=== PATIENT | female | born 1950 | race Caucasian/White ===

== ENCOUNTER 2022-06-07 15:55 | Observation (INO) ==
[2022-06-07] MEDS ORDERED: Ondansetron 4 MG/2 ML VIAL IVP ONE (16:39)
[2022-06-07] MEDS ORDERED: 0.9 % Sodium Chloride 500 ML IVC ONE (16:39)
[2022-06-07] MEDS: 0.9 % Sodium Chloride 1,000 ML IVC SCH (17:11)
[2022-06-07] MEDS ORDERED: Naloxone 0.4 MG/ML INJ IVP PRN (18:11)
[2022-06-07] MEDS ORDERED: Ipratropium/Albuterol Neb 3 ML IH PRN ×2 (18:13→18:45)
[2022-06-07] MEDS ORDERED: Ondansetron ODT 4 MG TAB.RAPDIS SL PRN (18:13)
[2022-06-07] MEDS ORDERED: *HR* OxyCODONE/APAP 5/325 TABLET PO ONE (22:16)
[2022-06-07] MEDS: Topiramate 25 MG TABLET PO SCH (22:33)
[2022-06-08] MEDS: *HR* Enoxaparin 40 MG/0.4 ML SYRINGE SQ SCH (07:12)
[2022-06-08 07:33] LABS: Albumin 2.8 g/dL (3.5-5.7); Bilirubin,Total 0.4 mg/dL (0.3-1.0); Calcium 8.2 mg/dL (8.6-10.3); Globulin 2.7 g/dL (2.4-3.5); Magnesium 1.6 mg/dL (1.6-2.6); Potassium 3.7 mEq/L (3.5-5.1); Total Protein 5.5 g/dL (6.4-8.9)
[2022-06-08] MEDS: Metoprolol XL (24 HR) Succ 25 MG TAB.ER.24H PO SCH (09:28)
[2022-06-08] MEDS: calcitrioL 0.25 MCG CAPSULE PO SCH (09:28)
[2022-06-08] MEDS: Multivit/Ca/Min/Fe/FA 1 TAB TABLET PO SCH (09:29)
[2022-06-08] MEDS: amLODIPine 5 MG TABLET PO SCH (09:29)
[2022-06-08] MEDS: Topiramate 25 MG TABLET PO SCH ×2 (09:30→22:58)
[2022-06-08] MEDS ORDERED: Melatonin 3 MG TABLET PO PRN (23:34)
[2022-06-08] MEDS ORDERED: *HR* OxyCODONE/APAP 5/325 TABLET PO ONE (23:34)
[2022-06-09] MEDS: *HR* Enoxaparin 40 MG/0.4 ML SYRINGE SQ SCH (06:40)
[2022-06-09] MEDS ORDERED: Simethicone 80 MG TAB.CHEW PO PRN (08:11)
[2022-06-09] MEDS: Multivit/Ca/Min/Fe/FA 1 TAB TABLET PO SCH (10:58)
[2022-06-09] MEDS: amLODIPine 5 MG TABLET PO SCH (10:58)
[2022-06-09] MEDS: Topiramate 25 MG TABLET PO SCH ×2 (10:58→23:36)
[2022-06-09] MEDS: calcitrioL 0.25 MCG CAPSULE PO SCH (10:58)
[2022-06-09] MEDS: Metoprolol XL (24 HR) Succ 25 MG TAB.ER.24H PO SCH (10:59)
[2022-06-09] MEDS: Acetaminophen 325 MG TABLET PO PRN (23:34)
[2022-06-09] MEDS: Melatonin 3 MG TABLET PO PRN (23:35)
[2022-06-10] MEDS: *HR* Enoxaparin 40 MG/0.4 ML SYRINGE SQ SCH (06:03)
[2022-06-10] MEDS: amLODIPine 5 MG TABLET PO SCH (08:48)
[2022-06-10] MEDS: Topiramate 25 MG TABLET PO SCH ×2 (08:49→22:12)
[2022-06-10] MEDS: Metoprolol XL (24 HR) Succ 25 MG TAB.ER.24H PO SCH (08:49)
[2022-06-10] MEDS: Multivit/Ca/Min/Fe/FA 1 TAB TABLET PO SCH (08:49)
[2022-06-10] MEDS: calcitrioL 0.25 MCG CAPSULE PO SCH (08:49)
[2022-06-10] MEDS ORDERED: Iopamidol - 370 500 ML MLS IVP ONE (11:14)
[2022-06-10 11:45] LABS: Basophils % 0.3 %; Eosinophils # 0.2 K/mcL (0.0-0.6); Eosinophils % 2.2 %; Hematocrit 34.5 % (35.3-44.9); Immature Granulocytes % 1.6 % (0-4); Lymphocytes # 1.4 K/mcL (0.6-4.6); Lymphocytes % 15.2 %; Mean Corpuscular HGB Conc 31.9 g/dL (31.6-35.5); Mean Corpuscular Hemoglobin 30.4 pg (28.0-33.3); Mean Corpuscular Volume 95.3 fL (83.0-100.0); Mean Platelet Volume 10.5 fL (9.4-12.4); Monocytes # 0.7 K/mcL (0.0-1.3); Monocytes % 7.4 %; Neutrophils # 6.6 K/mcL (1.6-8.9); Platelet Count 171 K/mcL (140-400); Red Blood Count 3.62 M/mcL (3.82-4.97); Red Cell Distribution Width 14.7 % (11.5-14.5); Segmented Neutrophils % 73.3 %
[2022-06-10 12:03] LABS: Calcium 9.3 mg/dL (8.6-10.3); Potassium 4.8 mEq/L (3.5-5.1)
[2022-06-10] MEDS: 0.9 % Sodium Chloride 1,000 ML IVC SCH (16:04)
[2022-06-10] MEDS: Acetaminophen 325 MG TABLET PO PRN (22:12)
[2022-06-11] MEDS: Melatonin 3 MG TABLET PO PRN (00:03)
[2022-06-11] MEDS: *HR* Enoxaparin 40 MG/0.4 ML SYRINGE SQ SCH (05:52)
[2022-06-11] MEDS: amLODIPine 5 MG TABLET PO SCH (09:02)
[2022-06-11] MEDS: Topiramate 25 MG TABLET PO SCH (09:02)
[2022-06-11] MEDS: Multivit/Ca/Min/Fe/FA 1 TAB TABLET PO SCH (09:02)
[2022-06-11] MEDS: calcitrioL 0.25 MCG CAPSULE PO SCH (09:02)
[2022-06-11] MEDS: Metoprolol XL (24 HR) Succ 25 MG TAB.ER.24H PO SCH (09:02)
[2022-06-11 15:16] VITALS: BP 121/71; PULSE 68; RESP 18; TEMP 98.4; O2SAT 95
== END 2022-06-11 06:20 | disposition other institution (70) ==
LOC: EMEROOPIK 15:55 → INPPIK 15:55 → SUATTDRO 17:10 → INPPIK 18:02
PROVIDERS: ADMIT Internal Medicine; ATTEND Nurse Practitioner

== ENCOUNTER 2022-06-11 13:42 | Inpatient (IN) ==
[2022-06-11] MEDS ORDERED: Ondansetron ODT 4 MG TAB.RAPDIS SL PRN (17:21)
[2022-06-11] MEDS ORDERED: Ipratropium/Albuterol Neb 3 ML IH PRN (17:21)
[2022-06-11] MEDS ORDERED: Naloxone 0.4 MG/ML INJ IVP PRN (17:40)
[2022-06-11] MEDS: Topiramate 25 MG TABLET PO SCH (20:42)
[2022-06-11] MEDS: Melatonin 3 MG TABLET PO SCH (20:42)
[2022-06-12] MEDS: *HR* Enoxaparin 40 MG/0.4 ML SYRINGE SQ SCH (05:46)
[2022-06-12] MEDS: calcitrioL 0.25 MCG CAPSULE PO SCH (10:38)
[2022-06-12] MEDS: amLODIPine 5 MG TABLET PO SCH (10:39)
[2022-06-12] MEDS: Metoprolol XL (24 HR) Succ 25 MG TAB.ER.24H PO SCH (10:39)
[2022-06-12] MEDS: Topiramate 25 MG TABLET PO SCH ×2 (10:39→20:52)
[2022-06-12] MEDS: Melatonin 3 MG TABLET PO SCH (20:52)
[2022-06-13] MEDS: *HR* Enoxaparin 40 MG/0.4 ML SYRINGE SQ SCH (04:56)
[2022-06-13] MEDS: Topiramate 25 MG TABLET PO SCH ×2 (07:30→21:07)
[2022-06-13] MEDS: amLODIPine 5 MG TABLET PO SCH (07:31)
[2022-06-13] MEDS: calcitrioL 0.25 MCG CAPSULE PO SCH (07:31)
[2022-06-13] MEDS: Metoprolol XL (24 HR) Succ 25 MG TAB.ER.24H PO SCH (07:31)
[2022-06-13 14:02] LABS: Basophils # 0.1 K/mcL (0.0-0.2); Basophils % 0.3 %; Eosinophils # 0.2 K/mcL (0.0-0.6); Eosinophils % 1.1 %; Hematocrit 38.4 % (35.3-44.9); Hemoglobin 12.3 g/dL (11.5-15.4); Immature Granulocytes % 1.6 % (0-4); Lymphocytes # 1.5 K/mcL (0.6-4.6); Lymphocytes % 9.3 %; Mean Corpuscular Hemoglobin 30.9 pg (28.0-33.3); Mean Corpuscular Volume 96.5 fL (83.0-100.0); Mean Platelet Volume 10.1 fL (9.4-12.4); Monocytes # 0.9 K/mcL (0.0-1.3); Monocytes % 5.6 %; Platelet Count 209 K/mcL (140-400); Red Blood Count 3.98 M/mcL (3.82-4.97); Red Cell Distribution Width 15.1 % (11.5-14.5); Segmented Neutrophils % 82.1 %; White Blood Count 15.9 K/mcL (4.3-11.1)
[2022-06-13 14:16] LABS: Albumin 3.4 g/dL (3.5-5.7); Bilirubin,Total 0.7 mg/dL (0.3-1.0); Calcium 9.2 mg/dL (8.6-10.3); Globulin 3.4 g/dL (2.4-3.5); Potassium 4.2 mEq/L (3.5-5.1); Total Protein 6.8 g/dL (6.4-8.9)
[2022-06-13 14:31] LABS: Neutrophils # 13.1 K/mcL (1.6-8.9)
[2022-06-13] MEDS: 0.9 % Sodium Chloride 1,000 ML IVC SCH (18:26)
[2022-06-13] MEDS: Melatonin 3 MG TABLET PO SCH (21:07)
[2022-06-14] MEDS: *HR* Enoxaparin 40 MG/0.4 ML SYRINGE SQ SCH (05:43)
[2022-06-14 06:43] LABS: Bilirubin,Urine Negative (Negative); Blood,Urine Negative (Negative); Clarity,Urine Clear (Clear); Color,Urine Yellow (Yellow); Glucose,Urine (UA) Normal (Normal); Ketones,Urine Negative (Negative); Leukocyte Esterase,Urine Trace (Negative); Nitrite,Urine Negative (Negative); PH,Urine 6.5 pH Units (5.0-8.0); Protein,Urine Negative (Neg-Trace); Urobilinogen,Urine Normal (Normal)
[2022-06-14 06:50] LABS: Hyaline Casts,Urine Few per lpf (None Seen); RBC,Urine 0-3 per hpf (0-3); Squamous Epithelial Cell,Urine Few per hpf (None-Few); WBC,Urine 0-3 per hpf (0-3)
[2022-06-14 06:51] LABS: Amorphous Sediment,Urine Few per hpf (None-Few); Bacteria,Urine Moderate per hpf (None-Few)
[2022-06-14] MEDS: amLODIPine 5 MG TABLET PO SCH (09:11)
[2022-06-14] MEDS: calcitrioL 0.25 MCG CAPSULE PO SCH (09:12)
[2022-06-14] MEDS: Metoprolol XL (24 HR) Succ 25 MG TAB.ER.24H PO SCH (09:12)
[2022-06-14] MEDS: Topiramate 25 MG TABLET PO SCH ×2 (09:12→19:48)
[2022-06-14] MEDS: Vancomycin Oral Soln 125 MG/2.5 ML UDC PO SCH ×4 (09:31→19:50)
[2022-06-14] MEDS: 0.9 % Sodium Chloride 1,000 ML IVC SCH (14:03)
[2022-06-14] MEDS: Melatonin 3 MG TABLET PO SCH (19:48)
[2022-06-15] MEDS ORDERED: 0.9 % Sodium Chloride 1,000 ML IVC SCH (03:00)
[2022-06-15] MEDS: *HR* Enoxaparin 40 MG/0.4 ML SYRINGE SQ SCH (04:51)
[2022-06-15] MEDS: calcitrioL 0.25 MCG CAPSULE PO SCH (08:24)
[2022-06-15] MEDS: Metoprolol XL (24 HR) Succ 25 MG TAB.ER.24H PO SCH (08:25)
[2022-06-15] MEDS: Topiramate 25 MG TABLET PO SCH ×2 (08:25→20:42)
[2022-06-15] MEDS: amLODIPine 5 MG TABLET PO SCH (08:25)
[2022-06-15] MEDS: Vancomycin Oral Soln 125 MG/2.5 ML UDC PO SCH ×4 (08:51→20:42)
[2022-06-15] MEDS: Melatonin 3 MG TABLET PO SCH (20:41)
[2022-06-16] MEDS: *HR* Enoxaparin 40 MG/0.4 ML SYRINGE SQ SCH (05:40)
[2022-06-16 08:18] LABS: Basophils % 0.3 %; Eosinophils # 0.3 K/mcL (0.0-0.6); Eosinophils % 2.5 %; Hematocrit 33.6 % (35.3-44.9); Hemoglobin 10.7 g/dL (11.5-15.4); Immature Granulocytes % 1.7 % (0-4); Lymphocytes # 1.4 K/mcL (0.6-4.6); Lymphocytes % 12.1 %; Mean Corpuscular HGB Conc 31.8 g/dL (31.6-35.5); Mean Corpuscular Hemoglobin 30.7 pg (28.0-33.3); Mean Corpuscular Volume 96.3 fL (83.0-100.0); Mean Platelet Volume 10.5 fL (9.4-12.4); Monocytes # 0.9 K/mcL (0.0-1.3); Monocytes % 7.4 %; Neutrophils # 8.8 K/mcL (1.6-8.9); Platelet Count 165 K/mcL (140-400); Red Blood Count 3.49 M/mcL (3.82-4.97); Red Cell Distribution Width 15.4 % (11.5-14.5); White Blood Count 11.6 K/mcL (4.3-11.1)
[2022-06-16 08:34] LABS: Calcium 8.1 mg/dL (8.6-10.3); Magnesium 1.8 mg/dL (1.6-2.6); Potassium 3.8 mEq/L (3.5-5.1)
[2022-06-16] MEDS: Vancomycin Oral Soln 125 MG/2.5 ML UDC PO SCH ×4 (10:29→21:36)
[2022-06-16] MEDS: Metoprolol XL (24 HR) Succ 25 MG TAB.ER.24H PO SCH (10:29)
[2022-06-16] MEDS: Lactobacillus 1 EACH CAP.SPRINK PO SCH (10:30)
[2022-06-16] MEDS: amLODIPine 5 MG TABLET PO SCH (10:30)
[2022-06-16] MEDS: Topiramate 25 MG TABLET PO SCH ×2 (10:30→21:37)
[2022-06-16] MEDS: calcitrioL 0.25 MCG CAPSULE PO SCH (10:30)
[2022-06-16] MEDS: Melatonin 3 MG TABLET PO SCH (21:37)
[2022-06-17] MEDS: Acetaminophen 325 MG TABLET PO PRN (01:01)
[2022-06-17] MEDS: *HR* Enoxaparin 40 MG/0.4 ML SYRINGE SQ SCH (06:00)
[2022-06-17] MEDS ORDERED: D5% in Water 1,000 ML IVC PRN (07:35)
[2022-06-17] MEDS ORDERED: Dextrose Gel 15 GM/37.5 ML TUBE PO PRN ×2 (07:35)
[2022-06-17] MEDS ORDERED: *HR* Dextrose 50 % in Water (Syg) 50 ML SYRINGE IVP PRN (07:35)
[2022-06-17] MEDS: Lactobacillus 1 EACH CAP.SPRINK PO SCH (09:05)
[2022-06-17] MEDS: calcitrioL 0.25 MCG CAPSULE PO SCH (09:07)
[2022-06-17] MEDS: Metoprolol XL (24 HR) Succ 25 MG TAB.ER.24H PO SCH (09:07)
[2022-06-17] MEDS: Topiramate 25 MG TABLET PO SCH ×2 (09:07→21:13)
[2022-06-17] MEDS: Vancomycin Oral Soln 125 MG/2.5 ML UDC PO SCH ×4 (09:07→21:13)
[2022-06-17] MEDS: amLODIPine 5 MG TABLET PO SCH (09:07)
[2022-06-17] MEDS: Insulin LISPRO 300 UNITS/3 ML VIAL SUBQ SCH ×3 (12:12→21:13)
[2022-06-17] MEDS: Melatonin 3 MG TABLET PO SCH (21:13)
[2022-06-18] MEDS: *HR* Enoxaparin 40 MG/0.4 ML SYRINGE SQ SCH (05:55)
[2022-06-18] MEDS: Insulin LISPRO 300 UNITS/3 ML VIAL SUBQ SCH ×4 (08:32→21:55)
[2022-06-18] MEDS: Vancomycin Oral Soln 125 MG/2.5 ML UDC PO SCH ×4 (08:33→21:54)
[2022-06-18] MEDS: Lactobacillus 1 EACH CAP.SPRINK PO SCH (08:33)
[2022-06-18] MEDS: calcitrioL 0.25 MCG CAPSULE PO SCH (08:33)
[2022-06-18] MEDS: amLODIPine 5 MG TABLET PO SCH (08:33)
[2022-06-18] MEDS: Topiramate 25 MG TABLET PO SCH ×2 (08:34→21:52)
[2022-06-18] MEDS: Metoprolol XL (24 HR) Succ 25 MG TAB.ER.24H PO SCH (08:34)
[2022-06-18 14:46] LABS: Calcium 8.8 mg/dL (8.6-10.3); Magnesium 1.8 mg/dL (1.6-2.6); Potassium 5.1 mEq/L (3.5-5.1)
[2022-06-18] MEDS: Gabapentin 100 MG CAPSULE PO SCH (21:52)
[2022-06-18] MEDS: Acetaminophen 325 MG TABLET PO PRN (21:53)
[2022-06-18] MEDS: Melatonin 3 MG TABLET PO SCH (21:55)
[2022-06-19] MEDS: *HR* Enoxaparin 40 MG/0.4 ML SYRINGE SQ SCH (06:23)
[2022-06-19] MEDS: Insulin LISPRO 300 UNITS/3 ML VIAL SUBQ SCH ×4 (08:54→20:48)
[2022-06-19] MEDS: Magnesium Oxide 400 MG TABLET PO SCH (10:47)
[2022-06-19] MEDS: Vancomycin Oral Soln 125 MG/2.5 ML UDC PO SCH ×4 (10:47→20:48)
[2022-06-19] MEDS: calcitrioL 0.25 MCG CAPSULE PO SCH (10:47)
[2022-06-19] MEDS: Lactobacillus 1 EACH CAP.SPRINK PO SCH (10:47)
[2022-06-19] MEDS: Metoprolol XL (24 HR) Succ 25 MG TAB.ER.24H PO SCH (10:48)
[2022-06-19] MEDS: amLODIPine 5 MG TABLET PO SCH (10:48)
[2022-06-19] MEDS: Topiramate 25 MG TABLET PO SCH ×2 (10:48→20:45)
[2022-06-19] MEDS: Melatonin 3 MG TABLET PO SCH (20:45)
[2022-06-19] MEDS: Gabapentin 100 MG CAPSULE PO SCH (20:47)
[2022-06-20] MEDS: *HR* Enoxaparin 40 MG/0.4 ML SYRINGE SQ SCH (06:26)
[2022-06-20] MEDS: Insulin LISPRO 300 UNITS/3 ML VIAL SUBQ SCH ×4 (09:58→22:16)
[2022-06-20] MEDS: Vancomycin Oral Soln 125 MG/2.5 ML UDC PO SCH ×4 (10:32→22:15)
[2022-06-20] MEDS: Lactobacillus 1 EACH CAP.SPRINK PO SCH (10:32)
[2022-06-20] MEDS: Magnesium Oxide 400 MG TABLET PO SCH (10:33)
[2022-06-20] MEDS: amLODIPine 5 MG TABLET PO SCH (10:33)
[2022-06-20] MEDS: Metoprolol XL (24 HR) Succ 25 MG TAB.ER.24H PO SCH (10:33)
[2022-06-20] MEDS: Topiramate 25 MG TABLET PO SCH ×2 (10:34→22:15)
[2022-06-20] MEDS: calcitrioL 0.25 MCG CAPSULE PO SCH (10:34)
[2022-06-20] MEDS: Gabapentin 100 MG CAPSULE PO SCH (22:15)
[2022-06-20] MEDS: Melatonin 3 MG TABLET PO SCH (22:15)
[2022-06-20] MEDS: Acetaminophen 325 MG TABLET PO PRN (22:16)
[2022-06-21] MEDS: *HR* Enoxaparin 40 MG/0.4 ML SYRINGE SQ SCH (05:15)
[2022-06-21 07:54] LABS: Calcium 9.1 mg/dL (8.6-10.3); Potassium 4.5 mEq/L (3.5-5.1)
[2022-06-21 08:06] LABS: Hematocrit 33.2 % (35.3-44.9); Hemoglobin 10.8 g/dL (11.5-15.4); Mean Corpuscular HGB Conc 32.5 g/dL (31.6-35.5); Mean Corpuscular Hemoglobin 30.9 pg (28.0-33.3); Mean Corpuscular Volume 94.9 fL (83.0-100.0); Mean Platelet Volume 10.7 fL (9.4-12.4); Platelet Count 177 K/mcL (140-400); Red Cell Distribution Width 15.3 % (11.5-14.5); White Blood Count 11.2 K/mcL (4.3-11.1)
[2022-06-21 08:08] LABS: Magnesium 1.9 mg/dL (1.6-2.6)
[2022-06-21] MEDS: Insulin LISPRO 300 UNITS/3 ML VIAL SUBQ SCH ×4 (09:03→20:12)
[2022-06-21] MEDS: Lactobacillus 1 EACH CAP.SPRINK PO SCH (09:03)
[2022-06-21] MEDS: Vancomycin Oral Soln 125 MG/2.5 ML UDC PO SCH (09:04)
[2022-06-21] MEDS: Metoprolol XL (24 HR) Succ 25 MG TAB.ER.24H PO SCH (09:04)
[2022-06-21] MEDS: amLODIPine 5 MG TABLET PO SCH (09:04)
[2022-06-21] MEDS: Magnesium Oxide 400 MG TABLET PO SCH (09:04)
[2022-06-21] MEDS: calcitrioL 0.25 MCG CAPSULE PO SCH (09:04)
[2022-06-21] MEDS: Topiramate 25 MG TABLET PO SCH ×2 (09:04→19:44)
[2022-06-21] MEDS ORDERED: 0.9 % Sodium Chloride 1,000 ML IVC SCH (10:15)
[2022-06-21] MEDS: Gabapentin 100 MG CAPSULE PO SCH (18:47)
[2022-06-21] MEDS: Melatonin 3 MG TABLET PO SCH (19:43)
[2022-06-21] MEDS: Acetaminophen 325 MG TABLET PO PRN (19:44)
[2022-06-22] MEDS: *HR* Enoxaparin 40 MG/0.4 ML SYRINGE SQ SCH (05:25)
[2022-06-22 07:43] LABS: Calcium 9.3 mg/dL (8.6-10.3); Potassium 4.5 mEq/L (3.5-5.1)
[2022-06-22] MEDS: Insulin LISPRO 300 UNITS/3 ML VIAL SUBQ SCH ×4 (09:07→21:00)
[2022-06-22] MEDS: amLODIPine 5 MG TABLET PO SCH (09:27)
[2022-06-22] MEDS: Metoprolol XL (24 HR) Succ 25 MG TAB.ER.24H PO SCH (09:27)
[2022-06-22] MEDS: Lactobacillus 1 EACH CAP.SPRINK PO SCH (09:27)
[2022-06-22] MEDS: Magnesium Oxide 400 MG TABLET PO SCH (09:27)
[2022-06-22] MEDS: calcitrioL 0.25 MCG CAPSULE PO SCH (09:28)
[2022-06-22] MEDS: Topiramate 25 MG TABLET PO SCH ×2 (09:28→20:38)
[2022-06-22] MEDS: Fidaxomicin 200 MG TABLET PO SCH ×2 (09:40→20:40)
[2022-06-22] MEDS: Gabapentin 100 MG CAPSULE PO SCH (18:32)
[2022-06-22] MEDS: Melatonin 3 MG TABLET PO SCH (20:39)
[2022-06-23] MEDS: *HR* Enoxaparin 40 MG/0.4 ML SYRINGE SQ SCH (05:23)
[2022-06-23] MEDS: Insulin LISPRO 300 UNITS/3 ML VIAL SUBQ SCH ×4 (07:24→20:35)
[2022-06-23] MEDS: Fidaxomicin 200 MG TABLET PO SCH ×2 (08:10→20:35)
[2022-06-23] MEDS: Lactobacillus 1 EACH CAP.SPRINK PO SCH (08:10)
[2022-06-23] MEDS: Topiramate 25 MG TABLET PO SCH ×2 (08:11→20:35)
[2022-06-23] MEDS: calcitrioL 0.25 MCG CAPSULE PO SCH (08:11)
[2022-06-23] MEDS: Metoprolol XL (24 HR) Succ 25 MG TAB.ER.24H PO SCH (08:11)
[2022-06-23] MEDS: Magnesium Oxide 400 MG TABLET PO SCH (08:12)
[2022-06-23] MEDS: amLODIPine 5 MG TABLET PO SCH (08:12)
[2022-06-23 09:29] LABS: Hematocrit 36.4 % (35.3-44.9); Hemoglobin 11.6 g/dL (11.5-15.4); Mean Corpuscular HGB Conc 31.9 g/dL (31.6-35.5); Mean Corpuscular Hemoglobin 30.5 pg (28.0-33.3); Mean Corpuscular Volume 95.8 fL (83.0-100.0); Mean Platelet Volume 10.7 fL (9.4-12.4); Platelet Count 208 K/mcL (140-400); Red Cell Distribution Width 15.7 % (11.5-14.5); White Blood Count 14.6 K/mcL (4.3-11.1)
[2022-06-23 09:42] LABS: Calcium 9.4 mg/dL (8.6-10.3); Potassium 4.4 mEq/L (3.5-5.1)
[2022-06-23] MEDS: Gabapentin 100 MG CAPSULE PO SCH (17:18)
[2022-06-23] MEDS: Melatonin 3 MG TABLET PO SCH (20:35)
[2022-06-24] MEDS: *HR* Enoxaparin 40 MG/0.4 ML SYRINGE SQ SCH (06:37)
[2022-06-24] MEDS: Lactobacillus 1 EACH CAP.SPRINK PO SCH (08:41)
[2022-06-24] MEDS: Magnesium Oxide 400 MG TABLET PO SCH (08:42)
[2022-06-24] MEDS: Fidaxomicin 200 MG TABLET PO SCH ×2 (08:42→19:56)
[2022-06-24] MEDS: calcitrioL 0.25 MCG CAPSULE PO SCH (08:43)
[2022-06-24] MEDS: Topiramate 25 MG TABLET PO SCH ×2 (08:43→19:56)
[2022-06-24] MEDS: amLODIPine 5 MG TABLET PO SCH (08:43)
[2022-06-24] MEDS: Insulin LISPRO 300 UNITS/3 ML VIAL SUBQ SCH ×4 (08:43→19:56)
[2022-06-24] MEDS: Metoprolol XL (24 HR) Succ 25 MG TAB.ER.24H PO SCH (08:43)
[2022-06-24] MEDS: Melatonin 3 MG TABLET PO SCH (19:55)
[2022-06-24] MEDS: Gabapentin 100 MG CAPSULE PO SCH (19:56)
[2022-06-25] MEDS: *HR* Enoxaparin 40 MG/0.4 ML SYRINGE SQ SCH (06:18)
[2022-06-25] MEDS: Magnesium Oxide 400 MG TABLET PO SCH (09:12)
[2022-06-25] MEDS: Topiramate 25 MG TABLET PO SCH ×2 (09:12→20:34)
[2022-06-25] MEDS: amLODIPine 5 MG TABLET PO SCH (09:12)
[2022-06-25] MEDS: Lactobacillus 1 EACH CAP.SPRINK PO SCH (09:13)
[2022-06-25] MEDS: calcitrioL 0.25 MCG CAPSULE PO SCH (09:13)
[2022-06-25] MEDS: Metoprolol XL (24 HR) Succ 25 MG TAB.ER.24H PO SCH (09:13)
[2022-06-25] MEDS: Fidaxomicin 200 MG TABLET PO SCH ×2 (09:13→20:35)
[2022-06-25] MEDS: Insulin LISPRO 300 UNITS/3 ML VIAL SUBQ SCH ×4 (09:14→20:39)
[2022-06-25] MEDS: Melatonin 3 MG TABLET PO SCH (20:34)
[2022-06-25] MEDS: Gabapentin 100 MG CAPSULE PO SCH (20:34)
[2022-06-26] MEDS: *HR* Enoxaparin 40 MG/0.4 ML SYRINGE SQ SCH (05:02)
[2022-06-26 08:12] LABS: Hematocrit 34.1 % (35.3-44.9); Hemoglobin 11.1 g/dL (11.5-15.4); Mean Corpuscular HGB Conc 32.6 g/dL (31.6-35.5); Mean Corpuscular Hemoglobin 30.8 pg (28.0-33.3); Mean Corpuscular Volume 94.7 fL (83.0-100.0); Mean Platelet Volume 10.9 fL (9.4-12.4); Platelet Count 176 K/mcL (140-400); Red Cell Distribution Width 15.7 % (11.5-14.5); White Blood Count 16.2 K/mcL (4.3-11.1)
[2022-06-26] MEDS: Insulin LISPRO 300 UNITS/3 ML VIAL SUBQ SCH ×4 (08:18→20:45)
[2022-06-26 08:48] LABS: Calcium 9.1 mg/dL (8.6-10.3); Magnesium 1.8 mg/dL (1.6-2.6); Potassium 4.7 mEq/L (3.5-5.1)
[2022-06-26] MEDS: Lactobacillus 1 EACH CAP.SPRINK PO SCH (09:58)
[2022-06-26] MEDS: Fidaxomicin 200 MG TABLET PO SCH ×2 (09:58→20:40)
[2022-06-26] MEDS: Magnesium Oxide 400 MG TABLET PO SCH (09:58)
[2022-06-26] MEDS: calcitrioL 0.25 MCG CAPSULE PO SCH (09:59)
[2022-06-26] MEDS: Topiramate 25 MG TABLET PO SCH ×2 (09:59→20:40)
[2022-06-26] MEDS: amLODIPine 5 MG TABLET PO SCH (09:59)
[2022-06-26] MEDS: Metoprolol XL (24 HR) Succ 25 MG TAB.ER.24H PO SCH (09:59)
[2022-06-26] MEDS: Acetaminophen 325 MG TABLET PO PRN ×2 (10:00→20:40)
[2022-06-26] MEDS: Gabapentin 100 MG CAPSULE PO SCH (17:12)
[2022-06-26] MEDS: Melatonin 3 MG TABLET PO SCH (20:40)
[2022-06-27] MEDS: *HR* Enoxaparin 40 MG/0.4 ML SYRINGE SQ SCH (05:14)
[2022-06-27] MEDS: Insulin LISPRO 300 UNITS/3 ML VIAL SUBQ SCH ×4 (08:08→20:47)
[2022-06-27] MEDS: Magnesium Oxide 400 MG TABLET PO SCH (10:15)
[2022-06-27] MEDS: Metoprolol XL (24 HR) Succ 25 MG TAB.ER.24H PO SCH (10:15)
[2022-06-27] MEDS: amLODIPine 5 MG TABLET PO SCH (10:15)
[2022-06-27] MEDS: Lactobacillus 1 EACH CAP.SPRINK PO SCH (10:15)
[2022-06-27] MEDS: Fidaxomicin 200 MG TABLET PO SCH ×2 (10:15→20:04)
[2022-06-27] MEDS: calcitrioL 0.25 MCG CAPSULE PO SCH (10:15)
[2022-06-27] MEDS: Topiramate 25 MG TABLET PO SCH ×2 (10:16→20:05)
[2022-06-27] MEDS: Gabapentin 100 MG CAPSULE PO SCH (17:47)
[2022-06-27] MEDS: Melatonin 3 MG TABLET PO SCH (20:04)
[2022-06-28] MEDS: *HR* Enoxaparin 40 MG/0.4 ML SYRINGE SQ SCH (05:30)
[2022-06-28] MEDS: Insulin LISPRO 300 UNITS/3 ML VIAL SUBQ SCH ×4 (07:44→21:19)
[2022-06-28 09:00] LABS: Basophils # 0.1 K/mcL (0.0-0.2); Basophils % 0.4 %; Eosinophils # 0.3 K/mcL (0.0-0.6); Eosinophils % 2.2 %; Hematocrit 35.2 % (35.3-44.9); Hemoglobin 11.3 g/dL (11.5-15.4); Immature Granulocytes % 1.1 % (0-4); Lymphocytes # 2.4 K/mcL (0.6-4.6); Lymphocytes % 17.4 %; Mean Corpuscular HGB Conc 32.1 g/dL (31.6-35.5); Mean Corpuscular Hemoglobin 30.5 pg (28.0-33.3); Mean Corpuscular Volume 94.9 fL (83.0-100.0); Mean Platelet Volume 10.8 fL (9.4-12.4); Monocytes # 0.9 K/mcL (0.0-1.3); Monocytes % 6.7 %; Neutrophils # 9.8 K/mcL (1.6-8.9); Platelet Count 171 K/mcL (140-400); Red Blood Count 3.71 M/mcL (3.82-4.97); Red Cell Distribution Width 15.7 % (11.5-14.5); Segmented Neutrophils % 72.2 %; White Blood Count 13.5 K/mcL (4.3-11.1)
[2022-06-28] MEDS ORDERED: Saliva Stimulant 44.3ml BOTTLE PO PRN (09:13)
[2022-06-28 09:18] LABS: Magnesium 1.8 mg/dL (1.6-2.6); Potassium 4.3 mEq/L (3.5-5.1)
[2022-06-28] MEDS: Fidaxomicin 200 MG TABLET PO SCH ×2 (09:26→21:33)
[2022-06-28] MEDS: amLODIPine 5 MG TABLET PO SCH (09:26)
[2022-06-28] MEDS: calcitrioL 0.25 MCG CAPSULE PO SCH (09:26)
[2022-06-28] MEDS: Lactobacillus 1 EACH CAP.SPRINK PO SCH (09:26)
[2022-06-28] MEDS: Topiramate 25 MG TABLET PO SCH ×2 (09:27→21:34)
[2022-06-28] MEDS: Magnesium Oxide 400 MG TABLET PO SCH (09:27)
[2022-06-28] MEDS: Metoprolol XL (24 HR) Succ 25 MG TAB.ER.24H PO SCH (09:27)
[2022-06-28] MEDS: Gabapentin 100 MG CAPSULE PO SCH (17:43)
[2022-06-28] MEDS: Acetaminophen 325 MG TABLET PO PRN (19:20)
[2022-06-28] MEDS: Melatonin 3 MG TABLET PO SCH (21:34)
[2022-06-29] MEDS: *HR* Enoxaparin 40 MG/0.4 ML SYRINGE SQ SCH (05:36)
[2022-06-29] MEDS: Insulin LISPRO 300 UNITS/3 ML VIAL SUBQ SCH ×4 (07:49→19:37)
[2022-06-29] MEDS: Metoprolol XL (24 HR) Succ 25 MG TAB.ER.24H PO SCH (07:50)
[2022-06-29] MEDS: Topiramate 25 MG TABLET PO SCH ×2 (07:51→21:36)
[2022-06-29] MEDS: amLODIPine 5 MG TABLET PO SCH (07:51)
[2022-06-29] MEDS: calcitrioL 0.25 MCG CAPSULE PO SCH (07:51)
[2022-06-29] MEDS: Lactobacillus 1 EACH CAP.SPRINK PO SCH (07:52)
[2022-06-29] MEDS: Fidaxomicin 200 MG TABLET PO SCH ×2 (07:52→21:35)
[2022-06-29] MEDS: Magnesium Oxide 400 MG TABLET PO SCH (07:52)
[2022-06-29] MEDS: Gabapentin 100 MG CAPSULE PO SCH (18:40)
[2022-06-29] MEDS: Melatonin 3 MG TABLET PO SCH (21:36)
[2022-06-30] MEDS: *HR* Enoxaparin 40 MG/0.4 ML SYRINGE SQ SCH (06:33)
[2022-06-30 07:45] LABS: Calcium 8.8 mg/dL (8.6-10.3); Magnesium 1.8 mg/dL (1.6-2.6)
[2022-06-30 07:48] LABS: Basophils % 0.4 %; Eosinophils # 0.3 K/mcL (0.0-0.6); Eosinophils % 2.3 %; Hematocrit 32.7 % (35.3-44.9); Hemoglobin 10.8 g/dL (11.5-15.4); Lymphocytes % 17.8 %; Mean Platelet Volume 10.8 fL (9.4-12.4); Monocytes # 0.8 K/mcL (0.0-1.3); Monocytes % 7.2 %; Neutrophils # 8.1 K/mcL (1.6-8.9); Platelet Count 158 K/mcL (140-400); Red Blood Count 3.48 M/mcL (3.82-4.97); Red Cell Distribution Width 15.7 % (11.5-14.5); Segmented Neutrophils % 71.3 %; White Blood Count 11.3 K/mcL (4.3-11.1)
[2022-06-30 07:53] LABS: Basophils # 0.1 K/mcL (0.0-0.2)
[2022-06-30] MEDS: Insulin LISPRO 300 UNITS/3 ML VIAL SUBQ SCH ×4 (07:53→20:49)
[2022-06-30] MEDS: Lactobacillus 1 EACH CAP.SPRINK PO SCH (08:42)
[2022-06-30] MEDS: Metoprolol XL (24 HR) Succ 25 MG TAB.ER.24H PO SCH (08:42)
[2022-06-30] MEDS: calcitrioL 0.25 MCG CAPSULE PO SCH (08:42)
[2022-06-30] MEDS: Fidaxomicin 200 MG TABLET PO SCH ×2 (08:42→20:48)
[2022-06-30] MEDS: Magnesium Oxide 400 MG TABLET PO SCH (08:42)
[2022-06-30] MEDS: Topiramate 25 MG TABLET PO SCH ×2 (08:43→20:48)
[2022-06-30] MEDS: amLODIPine 5 MG TABLET PO SCH (08:43)
[2022-06-30] MEDS: Gabapentin 100 MG CAPSULE PO SCH (18:16)
[2022-06-30] MEDS: Melatonin 3 MG TABLET PO SCH (20:48)
[2022-07-01] MEDS: *HR* Enoxaparin 40 MG/0.4 ML SYRINGE SQ SCH (05:30)
[2022-07-01] MEDS: Insulin LISPRO 300 UNITS/3 ML VIAL SUBQ SCH ×4 (07:06→21:37)
[2022-07-01] MEDS: Lactobacillus 1 EACH CAP.SPRINK PO SCH (09:51)
[2022-07-01] MEDS: amLODIPine 5 MG TABLET PO SCH (09:52)
[2022-07-01] MEDS: Topiramate 25 MG TABLET PO SCH ×2 (09:52→21:36)
[2022-07-01] MEDS: Metoprolol XL (24 HR) Succ 25 MG TAB.ER.24H PO SCH (09:52)
[2022-07-01] MEDS: Magnesium Oxide 400 MG TABLET PO SCH (09:52)
[2022-07-01] MEDS: Fidaxomicin 200 MG TABLET PO SCH ×2 (09:52→21:36)
[2022-07-01] MEDS: calcitrioL 0.25 MCG CAPSULE PO SCH (09:52)
[2022-07-01] MEDS: Gabapentin 100 MG CAPSULE PO SCH (17:20)
[2022-07-01] MEDS: Melatonin 3 MG TABLET PO SCH (21:36)
[2022-07-02] MEDS: *HR* Enoxaparin 40 MG/0.4 ML SYRINGE SQ SCH (05:10)
[2022-07-02] MEDS: Insulin LISPRO 300 UNITS/3 ML VIAL SUBQ SCH ×4 (10:45→19:57)
[2022-07-02] MEDS: Megestrol Acetate 400 MG/10 ML UDC PO SCH (10:53)
[2022-07-02] MEDS: Magnesium Oxide 400 MG TABLET PO SCH (10:53)
[2022-07-02] MEDS: Lactobacillus 1 EACH CAP.SPRINK PO SCH (10:53)
[2022-07-02] MEDS: Metoprolol XL (24 HR) Succ 25 MG TAB.ER.24H PO SCH (10:54)
[2022-07-02] MEDS: calcitrioL 0.25 MCG CAPSULE PO SCH (10:54)
[2022-07-02] MEDS: Topiramate 25 MG TABLET PO SCH ×2 (10:54→19:58)
[2022-07-02] MEDS: amLODIPine 5 MG TABLET PO SCH (10:54)
[2022-07-02] MEDS: Gabapentin 100 MG CAPSULE PO SCH (17:45)
[2022-07-02] MEDS: Melatonin 3 MG TABLET PO SCH (19:58)
[2022-07-02] MEDS: Acetaminophen 325 MG TABLET PO PRN (20:00)
[2022-07-03] MEDS: *HR* Enoxaparin 40 MG/0.4 ML SYRINGE SQ SCH (06:16)
[2022-07-03 07:16] LABS: Hematocrit 30.8 % (35.3-44.9); Mean Corpuscular HGB Conc 32.5 g/dL (31.6-35.5); Mean Corpuscular Hemoglobin 30.7 pg (28.0-33.3); Mean Corpuscular Volume 94.5 fL (83.0-100.0); Mean Platelet Volume 11.3 fL (9.4-12.4); Platelet Count 172 K/mcL (140-400); Red Blood Count 3.26 M/mcL (3.82-4.97); Red Cell Distribution Width 15.7 % (11.5-14.5); White Blood Count 10.2 K/mcL (4.3-11.1)
[2022-07-03 07:34] LABS: Calcium 8.7 mg/dL (8.6-10.3); Magnesium 1.9 mg/dL (1.6-2.6); Potassium 3.7 mEq/L (3.5-5.1)
[2022-07-03] MEDS: Insulin LISPRO 300 UNITS/3 ML VIAL SUBQ SCH ×4 (09:56→19:47)
[2022-07-03] MEDS ORDERED: Thiamine (B-1) 100 MG, Folic Acid 1 MG, MVI, adult with vitamin K 10 ML in 0.9 % Sodi... IVPB ONE (10:00)
[2022-07-03] MEDS: calcitrioL 0.25 MCG CAPSULE PO SCH (10:16)
[2022-07-03] MEDS: Metoprolol XL (24 HR) Succ 25 MG TAB.ER.24H PO SCH (10:17)
[2022-07-03] MEDS: Magnesium Oxide 400 MG TABLET PO SCH (10:17)
[2022-07-03] MEDS: Lactobacillus 1 EACH CAP.SPRINK PO SCH (10:17)
[2022-07-03] MEDS: Topiramate 25 MG TABLET PO SCH ×2 (10:17→19:46)
[2022-07-03] MEDS: amLODIPine 5 MG TABLET PO SCH (10:18)
[2022-07-03] MEDS: Megestrol Acetate 400 MG/10 ML UDC PO SCH (10:18)
[2022-07-03] MEDS: Gabapentin 100 MG CAPSULE PO SCH (17:43)
[2022-07-03] MEDS ORDERED: Thiamine (B-1) 100 MG, Folic Acid 1 MG, MVI, adult with vitamin K 10 ML in 0.9 % Sodi... IVPB SCH (18:00)
[2022-07-03] MEDS: Melatonin 3 MG TABLET PO SCH (19:46)
[2022-07-04] MEDS: *HR* Enoxaparin 40 MG/0.4 ML SYRINGE SQ SCH (06:54)
[2022-07-04] MEDS: Insulin LISPRO 300 UNITS/3 ML VIAL SUBQ SCH ×4 (10:09→20:17)
[2022-07-04] MEDS: Magnesium Oxide 400 MG TABLET PO SCH (10:12)
[2022-07-04] MEDS: Topiramate 25 MG TABLET PO SCH ×2 (10:12→20:16)
[2022-07-04] MEDS: Lactobacillus 1 EACH CAP.SPRINK PO SCH (10:12)
[2022-07-04] MEDS: Metoprolol XL (24 HR) Succ 25 MG TAB.ER.24H PO SCH (10:12)
[2022-07-04] MEDS: calcitrioL 0.25 MCG CAPSULE PO SCH (10:12)
[2022-07-04] MEDS: Megestrol Acetate 400 MG/10 ML UDC PO SCH (10:13)
[2022-07-04] MEDS: amLODIPine 5 MG TABLET PO SCH (10:13)
[2022-07-04] MEDS: Gabapentin 100 MG CAPSULE PO SCH (16:58)
[2022-07-04] MEDS: Melatonin 3 MG TABLET PO SCH (20:17)
[2022-07-05] MEDS: Acetaminophen 325 MG TABLET PO PRN (03:33)
[2022-07-05] MEDS: *HR* Enoxaparin 40 MG/0.4 ML SYRINGE SQ SCH (05:33)
[2022-07-05] MEDS: Insulin LISPRO 300 UNITS/3 ML VIAL SUBQ SCH ×4 (07:37→21:47)
[2022-07-05] MEDS: Topiramate 25 MG TABLET PO SCH ×2 (09:23→21:48)
[2022-07-05] MEDS: Metoprolol XL (24 HR) Succ 25 MG TAB.ER.24H PO SCH (09:23)
[2022-07-05] MEDS: amLODIPine 5 MG TABLET PO SCH (09:23)
[2022-07-05] MEDS: Lactobacillus 1 EACH CAP.SPRINK PO SCH (09:23)
[2022-07-05] MEDS: Magnesium Oxide 400 MG TABLET PO SCH (09:23)
[2022-07-05] MEDS: calcitrioL 0.25 MCG CAPSULE PO SCH ×2 (09:24→10:19)
[2022-07-05] MEDS: Megestrol Acetate 400 MG/10 ML UDC PO SCH (09:24)
[2022-07-05] MEDS: Gabapentin 100 MG CAPSULE PO SCH (17:07)
[2022-07-05] MEDS: Melatonin 3 MG TABLET PO SCH (21:48)
[2022-07-06] MEDS: Acetaminophen 325 MG TABLET PO PRN (05:31)
[2022-07-06] MEDS: *HR* Enoxaparin 40 MG/0.4 ML SYRINGE SQ SCH (05:31)
[2022-07-06 06:56] LABS: Basophils % 0.4 %; Eosinophils # 0.3 K/mcL (0.0-0.6); Eosinophils % 3.3 %; Hematocrit 30.1 % (35.3-44.9); Hemoglobin 9.6 g/dL (11.5-15.4); Immature Granulocytes % 1.8 % (0-4); Lymphocytes # 2.1 K/mcL (0.6-4.6); Lymphocytes % 21.7 %; Mean Corpuscular HGB Conc 31.9 g/dL (31.6-35.5); Mean Corpuscular Hemoglobin 30.7 pg (28.0-33.3); Mean Corpuscular Volume 96.2 fL (83.0-100.0); Mean Platelet Volume 10.4 fL (9.4-12.4); Monocytes # 0.6 K/mcL (0.0-1.3); Monocytes % 6.6 %; Neutrophils # 6.3 K/mcL (1.6-8.9); Platelet Count 191 K/mcL (140-400); Red Blood Count 3.13 M/mcL (3.82-4.97); Red Cell Distribution Width 15.9 % (11.5-14.5); Segmented Neutrophils % 66.2 %; White Blood Count 9.5 K/mcL (4.3-11.1)
[2022-07-06 07:19] LABS: Calcium 8.8 mg/dL (8.6-10.3); Potassium 3.9 mEq/L (3.5-5.1)
[2022-07-06] MEDS: Insulin LISPRO 300 UNITS/3 ML VIAL SUBQ SCH ×4 (07:29→20:40)
[2022-07-06] MEDS: Lactobacillus 1 EACH CAP.SPRINK PO SCH (09:29)
[2022-07-06] MEDS: calcitrioL 0.25 MCG CAPSULE PO SCH (09:30)
[2022-07-06] MEDS: Metoprolol XL (24 HR) Succ 25 MG TAB.ER.24H PO SCH (09:30)
[2022-07-06] MEDS: Topiramate 25 MG TABLET PO SCH ×2 (09:30→20:39)
[2022-07-06] MEDS: Megestrol Acetate 400 MG/10 ML UDC PO SCH (09:31)
[2022-07-06] MEDS: amLODIPine 5 MG TABLET PO SCH (09:31)
[2022-07-06] MEDS: Magnesium Oxide 400 MG TABLET PO SCH (09:31)
[2022-07-06] MEDS: Gabapentin 100 MG CAPSULE PO SCH (17:20)
[2022-07-06] MEDS: Melatonin 3 MG TABLET PO SCH (20:39)
[2022-07-07] MEDS: *HR* Enoxaparin 40 MG/0.4 ML SYRINGE SQ SCH (05:13)
[2022-07-07] MEDS: Insulin LISPRO 300 UNITS/3 ML VIAL SUBQ SCH ×4 (07:12→20:39)
[2022-07-07] MEDS: Lactobacillus 1 EACH CAP.SPRINK PO SCH (08:00)
[2022-07-07] MEDS: Topiramate 25 MG TABLET PO SCH ×2 (08:00→20:39)
[2022-07-07] MEDS: Metoprolol XL (24 HR) Succ 25 MG TAB.ER.24H PO SCH (08:00)
[2022-07-07] MEDS: Magnesium Oxide 400 MG TABLET PO SCH (08:00)
[2022-07-07] MEDS: amLODIPine 5 MG TABLET PO SCH (08:00)
[2022-07-07] MEDS: Megestrol Acetate 400 MG/10 ML UDC PO SCH (08:00)
[2022-07-07] MEDS: calcitrioL 0.25 MCG CAPSULE PO SCH (08:00)
[2022-07-07] MEDS ORDERED: Flu Vac QV 22-23 (6MOS UP)/PF 0.5 ML SYRINGE IM ONE (12:50)
[2022-07-07] MEDS: Gabapentin 100 MG CAPSULE PO SCH (18:00)
[2022-07-07] MEDS: Acetaminophen 325 MG TABLET PO PRN (20:38)
[2022-07-07] MEDS: Melatonin 3 MG TABLET PO SCH (20:39)
[2022-07-08] MEDS: *HR* Enoxaparin 40 MG/0.4 ML SYRINGE SQ SCH (06:37)
[2022-07-08] MEDS: Insulin LISPRO 300 UNITS/3 ML VIAL SUBQ SCH ×4 (07:29→20:58)
[2022-07-08] MEDS: Lactobacillus 1 EACH CAP.SPRINK PO SCH (08:42)
[2022-07-08] MEDS: calcitrioL 0.25 MCG CAPSULE PO SCH (08:42)
[2022-07-08] MEDS: Megestrol Acetate 400 MG/10 ML UDC PO SCH (08:42)
[2022-07-08] MEDS: Metoprolol XL (24 HR) Succ 25 MG TAB.ER.24H PO SCH (08:42)
[2022-07-08] MEDS: Magnesium Oxide 400 MG TABLET PO SCH (08:43)
[2022-07-08] MEDS: Topiramate 25 MG TABLET PO SCH ×2 (08:43→20:57)
[2022-07-08] MEDS: amLODIPine 5 MG TABLET PO SCH (08:43)
[2022-07-08] MEDS: Gabapentin 100 MG CAPSULE PO SCH (16:37)
[2022-07-08] MEDS: Melatonin 3 MG TABLET PO SCH (20:57)
[2022-07-09] MEDS: *HR* Enoxaparin 40 MG/0.4 ML SYRINGE SQ SCH (06:18)
[2022-07-09] MEDS: Insulin LISPRO 300 UNITS/3 ML VIAL SUBQ SCH ×4 (07:40→19:46)
[2022-07-09] MEDS ORDERED: Fidaxomicin 200 MG TABLET PO SCH (09:17)
[2022-07-09] MEDS: amLODIPine 5 MG TABLET PO SCH (10:00)
[2022-07-09] MEDS: Magnesium Oxide 400 MG TABLET PO SCH (10:00)
[2022-07-09] MEDS: Lactobacillus 1 EACH CAP.SPRINK PO SCH (10:00)
[2022-07-09] MEDS: calcitrioL 0.25 MCG CAPSULE PO SCH (10:00)
[2022-07-09] MEDS: Topiramate 25 MG TABLET PO SCH ×2 (10:00→19:45)
[2022-07-09] MEDS: Metoprolol XL (24 HR) Succ 25 MG TAB.ER.24H PO SCH (10:00)
[2022-07-09] MEDS: Megestrol Acetate 400 MG/10 ML UDC PO SCH (10:01)
[2022-07-09] MEDS: Fidaxomicin 200 MG TABLET PO SCH ×2 (10:03→19:45)
[2022-07-09] MEDS: Gabapentin 100 MG CAPSULE PO SCH (17:28)
[2022-07-09] MEDS: Melatonin 3 MG TABLET PO SCH (19:45)
[2022-07-09] MEDS: Acetaminophen 325 MG TABLET PO PRN (19:45)
[2022-07-10] MEDS: *HR* Enoxaparin 40 MG/0.4 ML SYRINGE SQ SCH (04:57)
[2022-07-10] MEDS: Acetaminophen 325 MG TABLET PO PRN ×2 (04:57→21:08)
[2022-07-10] MEDS: Insulin LISPRO 300 UNITS/3 ML VIAL SUBQ SCH ×4 (07:48→20:58)
[2022-07-10] MEDS: Magnesium Oxide 400 MG TABLET PO SCH (09:10)
[2022-07-10] MEDS: Megestrol Acetate 400 MG/10 ML UDC PO SCH (09:10)
[2022-07-10] MEDS: Fidaxomicin 200 MG TABLET PO SCH ×2 (09:10→20:55)
[2022-07-10] MEDS: calcitrioL 0.25 MCG CAPSULE PO SCH (09:10)
[2022-07-10] MEDS: amLODIPine 5 MG TABLET PO SCH (09:11)
[2022-07-10] MEDS: Lactobacillus 1 EACH CAP.SPRINK PO SCH (09:11)
[2022-07-10] MEDS: Topiramate 25 MG TABLET PO SCH ×2 (09:11→20:57)
[2022-07-10] MEDS: Metoprolol XL (24 HR) Succ 25 MG TAB.ER.24H PO SCH (09:11)
[2022-07-10] MEDS ORDERED: 0.9 % Sodium Chloride 500 ML IVC ONE (12:55)
[2022-07-10] MEDS: 0.9 % Sodium Chloride 1,000 ML IVC SCH (14:22)
[2022-07-10] MEDS: Gabapentin 100 MG CAPSULE PO SCH (17:25)
[2022-07-10] MEDS: Melatonin 3 MG TABLET PO SCH (20:56)
[2022-07-11] MEDS: 0.9 % Sodium Chloride 1,000 ML IVC SCH (00:25)
[2022-07-11] MEDS: *HR* Enoxaparin 40 MG/0.4 ML SYRINGE SQ SCH (05:41)
[2022-07-11] MEDS: Insulin LISPRO 300 UNITS/3 ML VIAL SUBQ SCH ×4 (08:00→20:32)
[2022-07-11] MEDS: Fidaxomicin 200 MG TABLET PO SCH ×2 (08:32→20:39)
[2022-07-11] MEDS: Magnesium Oxide 400 MG TABLET PO SCH (08:32)
[2022-07-11] MEDS: amLODIPine 5 MG TABLET PO SCH (08:33)
[2022-07-11] MEDS: Metoprolol XL (24 HR) Succ 25 MG TAB.ER.24H PO SCH (08:33)
[2022-07-11] MEDS: Lactobacillus 1 EACH CAP.SPRINK PO SCH (08:33)
[2022-07-11] MEDS: calcitrioL 0.25 MCG CAPSULE PO SCH (08:33)
[2022-07-11] MEDS: Megestrol Acetate 400 MG/10 ML UDC PO SCH (08:34)
[2022-07-11] MEDS: Topiramate 25 MG TABLET PO SCH ×2 (08:34→20:41)
[2022-07-11 09:08] LABS: Basophils # 0.1 K/mcL (0.0-0.2); Basophils % 0.5 %; Eosinophils # 0.3 K/mcL (0.0-0.6); Eosinophils % 2.8 %; Hematocrit 32.6 % (35.3-44.9); Hemoglobin 10.3 g/dL (11.5-15.4); Immature Granulocytes % 1.3 % (0-4); Lymphocytes # 2.1 K/mcL (0.6-4.6); Lymphocytes % 21.4 %; Mean Corpuscular HGB Conc 31.6 g/dL (31.6-35.5); Mean Corpuscular Hemoglobin 31.2 pg (28.0-33.3); Mean Corpuscular Volume 98.8 fL (83.0-100.0); Mean Platelet Volume 10.2 fL (9.4-12.4); Monocytes # 0.6 K/mcL (0.0-1.3); Monocytes % 6.5 %; Neutrophils # 6.5 K/mcL (1.6-8.9); Platelet Count 219 K/mcL (140-400); Red Cell Distribution Width 16.5 % (11.5-14.5); Segmented Neutrophils % 67.5 %; White Blood Count 9.6 K/mcL (4.3-11.1)
[2022-07-11 09:17] LABS: Calcium 8.5 mg/dL (8.6-10.3); Potassium 3.9 mEq/L (3.5-5.1)
[2022-07-11] MEDS: Gabapentin 100 MG CAPSULE PO SCH (17:26)
[2022-07-11] MEDS: Acetaminophen 325 MG TABLET PO PRN (20:39)
[2022-07-11] MEDS: Melatonin 3 MG TABLET PO SCH (20:40)
[2022-07-12] MEDS: *HR* Enoxaparin 40 MG/0.4 ML SYRINGE SQ SCH (05:27)
[2022-07-12] MEDS: calcitrioL 0.25 MCG CAPSULE PO SCH (08:57)
[2022-07-12] MEDS: Magnesium Oxide 400 MG TABLET PO SCH (08:57)
[2022-07-12] MEDS: Fidaxomicin 200 MG TABLET PO SCH ×2 (08:57→20:55)
[2022-07-12] MEDS: Lactobacillus 1 EACH CAP.SPRINK PO SCH (08:57)
[2022-07-12] MEDS: Megestrol Acetate 400 MG/10 ML UDC PO SCH (08:57)
[2022-07-12] MEDS: Topiramate 25 MG TABLET PO SCH ×2 (08:58→20:55)
[2022-07-12] MEDS: amLODIPine 5 MG TABLET PO SCH (08:58)
[2022-07-12] MEDS: Metoprolol XL (24 HR) Succ 25 MG TAB.ER.24H PO SCH (08:58)
[2022-07-12] MEDS: Insulin LISPRO 300 UNITS/3 ML VIAL SUBQ SCH ×4 (08:59→20:56)
[2022-07-12] MEDS: Gabapentin 100 MG CAPSULE PO SCH (16:50)
[2022-07-12] MEDS: Acetaminophen 325 MG TABLET PO PRN (18:37)
[2022-07-12] MEDS: Melatonin 3 MG TABLET PO SCH (20:54)
[2022-07-13] MEDS: *HR* Enoxaparin 40 MG/0.4 ML SYRINGE SQ SCH (05:41)
[2022-07-13] MEDS: Insulin LISPRO 300 UNITS/3 ML VIAL SUBQ SCH ×4 (08:33→19:57)
[2022-07-13] MEDS: Lactobacillus 1 EACH CAP.SPRINK PO SCH (08:49)
[2022-07-13] MEDS: Fidaxomicin 200 MG TABLET PO SCH ×2 (08:50→19:38)
[2022-07-13] MEDS: Magnesium Oxide 400 MG TABLET PO SCH (08:50)
[2022-07-13] MEDS: Megestrol Acetate 400 MG/10 ML UDC PO SCH (08:50)
[2022-07-13] MEDS: calcitrioL 0.25 MCG CAPSULE PO SCH (08:51)
[2022-07-13] MEDS: Metoprolol XL (24 HR) Succ 25 MG TAB.ER.24H PO SCH (08:51)
[2022-07-13] MEDS: Topiramate 25 MG TABLET PO SCH ×2 (08:51→19:37)
[2022-07-13] MEDS: amLODIPine 5 MG TABLET PO SCH (08:52)
[2022-07-13] MEDS: Gabapentin 100 MG CAPSULE PO SCH (17:33)
[2022-07-13] MEDS: Acetaminophen 325 MG TABLET PO PRN (18:50)
[2022-07-13] MEDS: Melatonin 3 MG TABLET PO SCH (19:37)
[2022-07-14] MEDS: *HR* Enoxaparin 40 MG/0.4 ML SYRINGE SQ SCH (06:44)
[2022-07-14] MEDS: Insulin LISPRO 300 UNITS/3 ML VIAL SUBQ SCH ×4 (09:24→20:01)
[2022-07-14] MEDS: Lactobacillus 1 EACH CAP.SPRINK PO SCH (11:01)
[2022-07-14] MEDS: Megestrol Acetate 400 MG/10 ML UDC PO SCH (11:01)
[2022-07-14] MEDS: Magnesium Oxide 400 MG TABLET PO SCH (11:02)
[2022-07-14] MEDS: amLODIPine 5 MG TABLET PO SCH (11:02)
[2022-07-14] MEDS: Metoprolol XL (24 HR) Succ 25 MG TAB.ER.24H PO SCH (11:03)
[2022-07-14] MEDS: calcitrioL 0.25 MCG CAPSULE PO SCH (11:04)
[2022-07-14] MEDS: Topiramate 25 MG TABLET PO SCH ×2 (11:04→20:14)
[2022-07-14] MEDS: Gabapentin 100 MG CAPSULE PO SCH (17:23)
[2022-07-14] MEDS: Acetaminophen 325 MG TABLET PO PRN (17:27)
[2022-07-14] MEDS: Melatonin 3 MG TABLET PO SCH (20:14)
[2022-07-15] MEDS: *HR* Enoxaparin 40 MG/0.4 ML SYRINGE SQ SCH (06:29)
[2022-07-15] MEDS: Insulin LISPRO 300 UNITS/3 ML VIAL SUBQ SCH ×3 (09:28→19:41)
[2022-07-15] MEDS: Magnesium Oxide 400 MG TABLET PO SCH (09:28)
[2022-07-15] MEDS: Megestrol Acetate 400 MG/10 ML UDC PO SCH (09:28)
[2022-07-15] MEDS: Lactobacillus 1 EACH CAP.SPRINK PO SCH (09:28)
[2022-07-15] MEDS: Metoprolol XL (24 HR) Succ 25 MG TAB.ER.24H PO SCH (09:29)
[2022-07-15] MEDS: Topiramate 25 MG TABLET PO SCH ×2 (09:29→21:03)
[2022-07-15] MEDS: amLODIPine 5 MG TABLET PO SCH (09:29)
[2022-07-15] MEDS: calcitrioL 0.25 MCG CAPSULE PO SCH (09:29)
[2022-07-15] MEDS ORDERED: Fidaxomicin 200 MG TABLET PO SCH (10:00)
[2022-07-15 14:57] LABS: Calprotectin, Fecal 413 ug/g (<=49)
[2022-07-15] MEDS: Melatonin 3 MG TABLET PO SCH (21:03)
[2022-07-15] MEDS: Acetaminophen 325 MG TABLET PO PRN (21:27)
[2022-07-16] MEDS: *HR* Enoxaparin 40 MG/0.4 ML SYRINGE SQ SCH (05:43)
[2022-07-16 06:55] VITALS: BP 157/67; PULSE 66; RESP 15; TEMP 97.6; O2SAT 96
[2022-07-16] MEDS: Insulin LISPRO 300 UNITS/3 ML VIAL SUBQ SCH ×2 (07:33→07:37)
[2022-07-16] MEDS: Gabapentin 100 MG CAPSULE PO SCH (07:33)
[2022-07-16] MEDS: amLODIPine 5 MG TABLET PO SCH (09:09)
[2022-07-16] MEDS: Magnesium Oxide 400 MG TABLET PO SCH (09:10)
[2022-07-16] MEDS: Metoprolol XL (24 HR) Succ 25 MG TAB.ER.24H PO SCH (09:10)
[2022-07-16] MEDS: Megestrol Acetate 400 MG/10 ML UDC PO SCH (09:10)
[2022-07-16] MEDS: Topiramate 25 MG TABLET PO SCH (09:10)
[2022-07-16] MEDS: Lactobacillus 1 EACH CAP.SPRINK PO SCH (09:11)
[2022-07-16] MEDS: calcitrioL 0.25 MCG CAPSULE PO SCH (09:46)
== END 2022-07-16 10:05 | disposition home health service (06) | DRG 371 ==
LOC: INPPIK 18:59 → SUATTDRO 18:59
PROVIDERS: ADMIT Family Medicine; ATTEND Nurse Practitioner